=== PATIENT | female | born 1950 | race Caucasian/White ===

== ENCOUNTER → 2019-03-15 | Day surgery (SDC) | payer MEDICARE ==
[2019-03-14 11:14] LABS: BASOPHILS % 0.6 % (0.0-1.0); EOSINOPHILS # (AUTO) 0.1 (0.0-0.4); HEMATOCRIT 43.7 % (34.2-44.1); HEMOGLOBIN 14.3 g/dL (12.0-16.0); LYMPHOCYTES # (AUTO) 0.9 (1.0-3.2); LYMPHOCYTES % 19.5 % (18.0-39.1); MEAN CORPUSCULAR HEMOGLOBIN 33.2 pg (28-32); MEAN CORPUSCULAR HGB CONC 32.7 g/dL (31-35); MEAN CORPUSCULAR VOLUME 101.4 fL (81-99); MONOCYTES # (AUTO) 0.5 (0.2-0.8); MONOCYTES % 10.9 % (4.4-11.3); NEUTROPHILS # (AUTO) 3.2 (2.1-6.9); NEUTROPHILS % 67.8 % (38.7-80.0); PLATELET COUNT 236 x10e3/uL (140-360); RED BLOOD COUNT 4.31 x10e6/uL (3.6-5.1); RED CELL DISTRIBUTION WIDTH 13.7 % (11.7-14.4)
[~2019-03-15] MED LIST: BALANCED SALT SOLN (OPTH) 15 ML BTL IO ONE; BUPIVACAINE HC 0.75% PF 10ML VIAL INJ ONE; BUPIVACAINE HCL 0.25% 10ML MPF VIAL INJ ONE; CYCLOPENTOLATE HCL 1% OPTH SOLN 2ML BTL ONE; EPINEPHRINE HCL 1:1000 1ML 1 MG/ML AMP ONE; FENTANYL CITRATE/PF 100MCG/2 ML INJ ONE; LIDOCAINE 2%/ EPINEPHRINE 20ML MDV ONE; LIDOCAINE HCL 1% 2 ML AMP ONE; LIDOCAINE HCL-PF 4% 40 MG/1 ML 5ML AMP ONE; MIDAZOLAM HCL 2 MG/2 ML VIAL ONE; MOXIFLOXACIN HCL(OPTH) 3 ML BTL ONE; NEOMYCIN/POLYMYXIN/DEX (OPTH) 3.5 GM TUBE ONE; PAROXETINE HCL20 MG PO; PHENYLEPHRINE HCL 2 ML DROPS ONE; POVIDONE IODINE 5% (OPTH) 30 ML BTL ONE; TOBRAMYCIN/DEXAMETHASONE(OPTH) 3.5 GM TUBE ONE; TRELEGY ELLIPT1 EACH INH; TROPICAMIDE 1% OPTH SOLN 3ML ONE
[2019-03-15 08:25] VITALS: BP 128/80
--- OUTSIDE RECORDS SUMMARY | 2019-03-15 19:32 | XMS REPORT ---
[facility] Address Unknown Phone Unavailable Care Team Providers Care Director Paid Media Name Role Phone Unavailable Unavailable Payers Payer Name Policy Type Policy Number Effective Date Expiration Date Problems This patient has no known problems. Allergies, Adverse Reactions, Alerts Allergy Name Allergy Type Status Severity Reaction(s) Onset Date Inactive Date Treating Clinician Comments Sulfa (Sulfonamide Antibiotics) DA Active MO 2010-07-15 00:00:00 aspirin DA Active MO 2010-07-15 00:00:00 Medications This patient has no known medications. Results Test Description Test Time Test Comments Text Results Atomic Results Result Comments - XR CONT ENEMA W/WO MUNA 2018-10-18 12:14:00 FAX: Miguel Angel Alvarez MD [phone] [place]: St: [facility] FAX: Kg Greene [phone] Name: ABBEY CANTU JAKOB [facility] : 1950 Age/S: 68/F [address] [facility] Unit #: [id number] Loc: [place] [address] Phys: Miguel Angel Guillaume MD Acct: [id number] Dis Date: Status: REG CLSumeet PHONE #: [phone] Exam Date: 10/18/2018 1020 FAX #: [phone] Reason: Marie QURESHI.9 EXAMS: CPT CODE: [id number] XR CONT ENEMA W/WO KUB [id number] HISTORY: Anemia. COMPARISON: None available. Double contrast barium enema exam: Piercer Operator view of the abdomen demonstrating nonspecific bowel gas pattern. Retrograde barium was administered using gravity along with air the entire colon distended well. Free passage of contrast through the entire colon with reflux into the small bowel. No obstructing or constricting lesions. No mass. No obvious polyps are visible on this exam. IMPRESSION: The colon distended well without constricting or obstructing lesions. No polyps are visible on this examination. Fluoroscopy time utilized was 2.5 minutes. 47 images were obtained during the study. at 1214 Reported and signed by: Bubba Rees M.D. CC: Miguel Angel Guillaume MD; Zainab Blevins MD Technologist: RT ROHINI(R); STUDENT TECHNOLOGIST Trnscrd Date/Time/By: 10/18/2018 (8834) : By: [email or web address] Orig Print D/T: S: 10/18/2018 (3912) PAGE 1 Signed Report [facility] 2018-07-14 08:22:00 RUN DATE: 07/14/18 [place] - Lab PAGE 1 RUN TIME: 821 Specimen Inquiry RUN USER: INTERFACE PATIENT: ABBEY CANTU LOC: [place] U #: [id number] AGE/SX: 68/F ROOM: RE07/12/18REG DR: Miguel Angel Guillaume MD : 46 BED: DIS: STATUS: [facility] TLOC: SPEC #: [id number] RECD: 07/12/18 STATUS: YANDY [facility] #: [id number] JOHANA: 07/12/18- SUBM DR: Miguel Angel Guillaume MD ENTERED: 07/12/18 SP TYPE: STOMACH OTHR DR: ORDERED: GROSS PROCEDURES: GROSS (07/13/18- 143) TISSUES: 1. ANTRAL BIOPSY - H-PYLORI 2. SIGMOID - POLYP CLINICAL HISTORY COLLECTION DATE: COLON CANCER SCREENING, ANEMIA FINAL DIAGNOSIS Stomach, antrum, biopsy: CHRONIC ACTIVE GASTRITIS H. PYLORI ORGANISMS PRESENT MICROFOCAL INTESTINAL METAPLASIA NEGATIVE FOR DYSPLASIA OR MALIGNANCY Sigmoid colon polyp, polypectomy: VILLOUS ADENOMA NEGATIVE FOR HIGH GRADE DYSPLASIA OR MALIGNANCY FA/kim D [id number], [id number] MACROSCOPIC The first specimen is received in formalin, labeled with the patient's name, identified as "antrum bx", and consists of two cloud biopsy tissue measuring 0.2 and 0.4 cm, submitted as (1) for H E and Giemsa stain. The second specimen is received in formalin, labeled with the patient's name, identified as "sigmoid colon polyp", and consists of two portions of cloud-pink soft biopsy tissue measuring 0.3 and 0.7 cm. Base of larger specimen is inked in black and bisected. The specimen is entirely submitted as (2). CONTINUED ON NEXT PAGE RUN DATE: 07/14/18 [facility] PAGE 2 RUN TIME: 821 Specimen Inquiry RUN USER: INTERFACE SPEC #: [id number] PATIENT: ABBEY CANTU #[id number] (Continued) MACROSCOPIC (Continued) GROSS PERFORMED AT [facility] [address] [place] [address] [phone])[phone] MICROSCOPIC All of the stains, including any controls performed, stain appropriately. MICROSCOPIC PERFORMED AT [facility] [address] [place] [address] [phone])[phone] PERFORMING SITE Diagnosis performed at: [facility], [place] [address] [facility] [place] [address] Signed SIGNATURE ON FILE Elizabeth Watts MD 07/14/18 0822 END OF REPORT CBC W/AUTO DIFF 2018-06-30 20:48:00 WHITE BLOOD CELL (test code=WBC) 4.2 K/mm3 4.5-12.5 RED BLOOD CELL (test code=RBC) 4.90 mill/mm3 3.7-5.2 HEMOGLOBIN (test code=HGB) 13.0 gram/dL 11.5-15.5 HEMATOCRIT (test code=HCT) 43.8 % 36.0-46.0 MEAN CELL VOLUME (test code=MCV) 89.4 fL 80-98 MEAN CELL HGB (test code=MCH) 26.5 picogram 27.0-33.0 MEAN CELL HGB CONCETRATION (test code=MCHC) 29.7 gram/dL 33.0-36.0 RED CELL DISTRIBUTION WIDTH (test code=RDW) 28.0 % 11.6-16.2 RED CELL DISTRIBUTION WIDTH SD (test code=RDW-SD) 87.2 fL 37.0-51.0 PLATELET COUNT (test code=PLT) 266 K/mm3 150-450 MEAN PLATELET VOLUME (test code=MPV) 9.0 fL 6.7-11.0 NEUTROPHIL % (test code=NT%) 62.4 % 39.0-69.0 IMMATURE GRANULOCYTE % (test code=IG%) 0.2 % 0.0-5.0 LYMPHOCYTE % (test code=LY%) 25.7 % 25.0-55.0 MONOCYTE % (test code=MO%) 9.8 % 0.0-10.0 EOSINOPHIL % (test code=EO%) 1.4 % 0.0-5.0 BASOPHIL % (test code=BA%) 0.5 % 0.0-1.0 NEUTROPHIL # (test code=NT#) 2.60 K/mm3 1.8-7.7 IMMATURE GRANULOCYTE # (test code=IG#) 0.01 x10 3/uL 0-0.03 LYMPHOCYTE # (test code=LY#) 1.07 K/mm3 1.0-5.0 MONOCYTE # (test code=MO#) 0.41 K/mm3 0-0.8 EOSINOPHIL # (test code=EO#) 0.06 K/mm3 0.0-0.5 BASOPHIL # (test code=BA#) 0.02 K/mm3 0.0-0.2 MANUAL DIFF REQUIRED (test code=MDIFF) NO, ONLY SCAN NEEDED SCANNED SLIDE; SLIDE AGREES WITH AUTOMATED DIFFERENTIAL DIFFERENTIAL [id number] 20:48:00* Test Item Value Reference Range Comments STAIN ACCEPTABILITY (test code=STN ACCEPTABLE) STAIN ACCEPTABLE POIKILOCYTOSIS (test code=POIK) 1+ ANISOCYTOSIS (test code=ANISO) 2+ PLATELET ESTIMATE (test code=PLTEST) ADEQUATE PLATELET MORPHOLOGY (test code=PLTMORPH) NORMAL CBC W/AUTO [id number] 20:46:00* Test Item Value Reference Range Comments WHITE BLOOD CELL (test code=WBC) 4.2 K/mm3 4.5-12.5 RED BLOOD CELL (test code=RBC) 4.90 mill/mm3 3.7-5.2 HEMOGLOBIN (test code=HGB) 13.0 gram/dL 11.5-15.5 HEMATOCRIT (test code=HCT) 43.8 % 36.0-46.0 MEAN CELL VOLUME (test code=MCV) 89.4 fL 80-98 MEAN CELL HGB (test code=MCH) 26.5 picogram 27.0-33.0 MEAN CELL HGB CONCETRATION (test code=MCHC) 29.7 gram/dL 33.0-36.0 RED CELL DISTRIBUTION WIDTH (test code=RDW) 28.0 % 11.6-16.2 RED CELL DISTRIBUTION WIDTH SD (test code=RDW-SD) 87.2 fL 37.0-51.0 PLATELET COUNT (test code=PLT) 266 K/mm3 150-450 MEAN PLATELET VOLUME (test code=MPV) 9.0 fL 6.7-11.0 NEUTROPHIL % (test code=NT%) 62.4 % 39.0-69.0 IMMATURE GRANULOCYTE % (test code=IG%) 0.2 % 0.0-5.0 LYMPHOCYTE % (test code=LY%) 25.7 % 25.0-55.0 MONOCYTE % (test code=MO%) 9.8 % 0.0-10.0 EOSINOPHIL % (test code=EO%) 1.4 % 0.0-5.0 BASOPHIL % (test code=BA%) 0.5 % 0.0-1.0 NEUTROPHIL # (test code=NT#) 2.60 K/mm3 1.8-7.7 IMMATURE GRANULOCYTE # (test code=IG#) 0.01 x10 3/uL 0-0.03 LYMPHOCYTE # (test code=LY#) 1.07 K/mm3 1.0-5.0 MONOCYTE # (test code=MO#) 0.41 K/mm3 0-0.8 EOSINOPHIL # (test code=EO#) 0.06 K/mm3 0.0-0.5 BASOPHIL # (test code=BA#) 0.02 K/mm3 0.0-0.2 MANUAL DIFF REQUIRED (test code=MDIFF) NO, ONLY SCAN NEEDED SCANNED SLIDE; SLIDE AGREES WITH AUTOMATED DIFFERENTIAL DIFFERENTIAL [id number] 20:46:00* Test Item Value Reference Range Comments STAIN ACCEPTABILITY (test code=STN ACCEPTABLE) MORPHOLOGY COMMENT (test code=MOC) PLATELET ESTIMATE (test code=PLTEST) PLATELET MORPHOLOGY (test code=PLTMORPH) CBC W/AUTO [id number] 18:09:00* Test Item Value Reference Range Comments WHITE BLOOD CELL (test code=WBC) 4.2 K/mm3 4.5-12.5 RED BLOOD CELL (test code=RBC) 4.90 mill/mm3 3.7-5.2 HEMOGLOBIN (test code=HGB) 13.0 gram/dL 11.5-15.5 HEMATOCRIT (test code=HCT) 43.8 % 36.0-46.0 MEAN CELL VOLUME (test code=MCV) 89.4 fL 80-98 MEAN CELL HGB (test code=MCH) 26.5 picogram 27.0-33.0 MEAN CELL HGB CONCETRATION (test code=MCHC) 29.7 gram/dL 33.0-36.0 RED CELL DISTRIBUTION WIDTH (test code=RDW) 28.0 % 11.6-16.2 RED CELL DISTRIBUTION WIDTH SD (test code=RDW-SD) 87.2 fL 37.0-51.0 PLATELET COUNT (test code=PLT) 266 K/mm3 150-450 MEAN PLATELET VOLUME (test code=MPV) 9.0 fL 6.7-11.0 NEUTROPHIL % (test code=NT%) 62.4 % 39.0-69.0 IMMATURE GRANULOCYTE % (test code=IG%) 0.2 % 0.0-5.0 LYMPHOCYTE % (test code=LY%) 25.7 % 25.0-55.0 MONOCYTE % (test code=MO%) 9.8 % 0.0-10.0 EOSINOPHIL % (test code=EO%) 1.4 % 0.0-5.0 BASOPHIL % (test code=BA%) 0.5 % 0.0-1.0 NEUTROPHIL # (test code=NT#) 2.60 K/mm3 1.8-7.7 IMMATURE GRANULOCYTE # (test code=IG#) 0.01 x10 3/uL 0-0.03 LYMPHOCYTE # (test code=LY#) 1.07 K/mm3 1.0-5.0 MONOCYTE # (test code=MO#) 0.41 K/mm3 0-0.8 EOSINOPHIL # (test code=EO#) 0.06 K/mm3 0.0-0.5 BASOPHIL # (test code=BA#) 0.02 K/mm3 0.0-0.2 MANUAL DIFF REQUIRED (test code=MDIFF) NO, ONLY SCAN NEEDED DIFFERENTIAL [id number] 18:09:00* Test Item Value Reference Range Comments STAIN ACCEPTABILITY (test code=STN ACCEPTABLE) CABOT RINGS (test code=CAB) MORPHOLOGY COMMENT (test code=MOC) PLATELET ESTIMATE (test code=PLTEST) PLATELET MORPHOLOGY (test code=PLTMORPH) CBC W/AUTO [id number] 18:09:00* Test Item Value Reference Range Comments WHITE BLOOD CELL (test code=WBC) 4.2 K/mm3 4.5-12.5 RED BLOOD CELL (test code=RBC) 4.90 mill/mm3 3.7-5.2 HEMOGLOBIN (test code=HGB) 13.0 gram/dL 11.5-15.5 HEMATOCRIT (test code=HCT) 43.8 % 36.0-46.0 MEAN CELL VOLUME (test code=MCV) 89.4 fL 80-98 MEAN CELL HGB (test code=MCH) 26.5 picogram 27.0-33.0 MEAN CELL HGB CONCETRATION (test code=MCHC) 29.7 gram/dL 33.0-36.0 RED CELL DISTRIBUTION WIDTH (test code=RDW) 28.0 % 11.6-16.2 RED CELL DISTRIBUTION WIDTH SD (test code=RDW-SD) 87.2 fL 37.0-51.0 PLATELET COUNT (test code=PLT) 266 K/mm3 150-450 MEAN PLATELET VOLUME (test code=MPV) 9.0 fL 6.7-11.0 NEUTROPHIL % (test code=NT%) 62.4 % 39.0-69.0 IMMATURE GRANULOCYTE % (test code=IG%) 0.2 % 0.0-5.0 LYMPHOCYTE % (test code=LY%) 25.7 % 25.0-55.0 MONOCYTE % (test code=MO%) 9.8 % 0.0-10.0 EOSINOPHIL % (test code=EO%) 1.4 % 0.0-5.0 BASOPHIL % (test code=BA%) 0.5 % 0.0-1.0 NEUTROPHIL # (test code=NT#) 2.60 K/mm3 1.8-7.7 IMMATURE GRANULOCYTE # (test code=IG#) 0.01 x10 3/uL 0-0.03 LYMPHOCYTE # (test code=LY#) 1.07 K/mm3 1.0-5.0 MONOCYTE # (test code=MO#) 0.41 K/mm3 0-0.8 EOSINOPHIL # (test code=EO#) 0.06 K/mm3 0.0-0.5 BASOPHIL # (test code=BA#) 0.02 K/mm3 0.0-0.2 MANUAL DIFF REQUIRED (test code=MDIFF) NO, ONLY SCAN NEEDED DIFFERENTIAL [id number] 18:09:00* Test Item Value Reference Range Comments STAIN ACCEPTABILITY (test code=STN ACCEPTABLE) CABOT RINGS (test code=CAB) MORPHOLOGY COMMENT (test code=MOC) PLATELET ESTIMATE (test code=PLTEST) PLATELET MORPHOLOGY (test code=PLTMORPH) CBC W/AUTO [id number] 18:09:00* Test Item Value Reference Range Comments WHITE BLOOD CELL (test code=WBC) 4.2 K/mm3 4.5-12.5 RED BLOOD CELL (test code=RBC) 4.90 mill/mm3 3.7-5.2 HEMOGLOBIN (test code=HGB) 13.0 gram/dL 11.5-15.5 HEMATOCRIT (test code=HCT) 43.8 % 36.0-46.0 MEAN CELL VOLUME (test code=MCV) 89.4 fL 80-98 MEAN CELL HGB (test code=MCH) 26.5 picogram 27.0-33.0 MEAN CELL HGB CONCETRATION (test code=MCHC) 29.7 gram/dL 33.0-36.0 RED CELL DISTRIBUTION WIDTH (test code=RDW) 28.0 % 11.6-16.2 RED CELL DISTRIBUTION WIDTH SD (test code=RDW-SD) 87.2 fL 37.0-51.0 PLATELET COUNT (test code=PLT) 266 K/mm3 150-450 MEAN PLATELET VOLUME (test code=MPV) 9.0 fL 6.7-11.0 NEUTROPHIL % (test code=NT%) 62.4 % 39.0-69.0 IMMATURE GRANULOCYTE % (test code=IG%) 0.2 % 0.0-5.0 LYMPHOCYTE % (test code=LY%) 25.7 % 25.0-55.0 MONOCYTE % (test code=MO%) 9.8 % 0.0-10.0 EOSINOPHIL % (test code=EO%) 1.4 % 0.0-5.0 BASOPHIL % (test code=BA%) 0.5 % 0.0-1.0 NEUTROPHIL # (test code=NT#) 2.60 K/mm3 1.8-7.7 IMMATURE GRANULOCYTE # (test code=IG#) 0.01 x10 3/uL 0-0.03 LYMPHOCYTE # (test code=LY#) 1.07 K/mm3 1.0-5.0 MONOCYTE # (test code=MO#) 0.41 K/mm3 0-0.8 EOSINOPHIL # (test code=EO#) 0.06 K/mm3 0.0-0.5 BASOPHIL # (test code=BA#) 0.02 K/mm3 0.0-0.2 MANUAL DIFF REQUIRED (test code=MDIFF) NO, ONLY SCAN NEEDED DIFFERENTIAL [id number] 18:09:00* Test Item Value Reference Range Comments STAIN ACCEPTABILITY (test code=STN ACCEPTABLE) MORPHOLOGY COMMENT (test code=MOC) PLATELET ESTIMATE (test code=PLTEST) PLATELET MORPHOLOGY (test code=PLTMORPH) CBC W/AUTO [id number] 18:09:00* Test Item Value Reference Range Comments WHITE BLOOD CELL (test code=WBC) 4.2 K/mm3 4.5-12.5 RED BLOOD CELL (test code=RBC) 4.90 mill/mm3 3.7-5.2 HEMOGLOBIN (test code=HGB) 13.0 gram/dL 11.5-15.5 HEMATOCRIT (test code=HCT) 43.8 % 36.0-46.0 MEAN CELL VOLUME (test code=MCV) 89.4 fL 80-98 MEAN CELL HGB (test code=MCH) 26.5 picogram 27.0-33.0 MEAN CELL HGB CONCETRATION (test code=MCHC) 29.7 gram/dL 33.0-36.0 RED CELL DISTRIBUTION WIDTH (test code=RDW) 28.0 % 11.6-16.2 RED CELL DISTRIBUTION WIDTH SD (test code=RDW-SD) 87.2 fL 37.0-51.0 PLATELET COUNT (test code=PLT) 266 K/mm3 150-450 MEAN PLATELET VOLUME (test code=MPV) 9.0 fL 6.7-11.0 NEUTROPHIL % (test code=NT%) 62.4 % 39.0-69.0 IMMATURE GRANULOCYTE % (test code=IG%) 0.2 % 0.0-5.0 LYMPHOCYTE % (test code=LY%) 25.7 % 25.0-55.0 MONOCYTE % (test code=MO%) 9.8 % 0.0-10.0 EOSINOPHIL % (test code=EO%) 1.4 % 0.0-5.0 BASOPHIL % (test code=BA%) 0.5 % 0.0-1.0 NEUTROPHIL # (test code=NT#) 2.60 K/mm3 1.8-7.7 IMMATURE GRANULOCYTE # (test code=IG#) 0.01 x10 3/uL 0-0.03 LYMPHOCYTE # (test code=LY#) 1.07 K/mm3 1.0-5.0 MONOCYTE # (test code=MO#) 0.41 K/mm3 0-0.8 EOSINOPHIL # (test code=EO#) 0.06 K/mm3 0.0-0.5 BASOPHIL # (test code=BA#) 0.02 K/mm3 0.0-0.2 MANUAL DIFF REQUIRED (test code=MDIFF) NO, ONLY SCAN NEEDED DIFFERENTIAL [id number] 18:09:00* Test Item Value Reference Range Comments STAIN ACCEPTABILITY (test code=STN ACCEPTABLE) CABOT RINGS (test code=CAB) MORPHOLOGY COMMENT (test code=MOC) PLATELET ESTIMATE (test code=PLTEST) PLATELET MORPHOLOGY (test code=PLTMORPH) BASIC METABOLIC [id number] 17:25:00* Test Item Value Reference Range Comments SODIUM (test code=NA) 143 mmol/L 128-145 POTASSIUM (test code=K) 4.2 mmol/L 3.5-5.1 CHLORIDE (test code=CL) 103.0 mmol/L 98-107 CARBON DIOXIDE (test code=CO2) 28.4 mmol/L 22-29 ANION GAP (test code=GAP) 16 mmol/L 10-20 GLUCOSE (test code=GLU) 61 mg/dL 70-110 BLOOD UREA NITROGEN (test code=BUN) 13 mg/dL 7-22 GLOMERULAR FILTRATION RATE (test code=GFR) > 60 mL/min >=60 Estimated GFR by using Modified MDRD formula.Chronic kidney disease is defined as either kidney damageor GFR <60 mL/min/1.73 m2 for >3 months. CREATININE (test code=CREAT) 0.62 mg/dL 0.55-1.3 BUN/CREATININE RATIO (test code=BUN/CREA) 21.0 10-20 CALCIUM (test code=CA) 9.7 mg/dL 8.0-10.5
== END | disposition home or self-care (01) ==
LOC: OR 05:38
PROVIDERS: ATTEND Ophthalmology
DX: H25.11 Age-related nuclear cataract, right eye (principal); J44.9 Chronic obstructive pulmonary disease, unspecified; F17.210 Nicotine dependence, cigarettes, uncomplicated; Z88.6 Allergy status to analgesic agent; Z88.2 Allergy status to sulfonamides; Z01.810 Encounter for preprocedural cardiovascular examination; Z01.812 Encounter for preprocedural laboratory examination
CPT/HCPCS: 36415; 66984; 85025; 93005; J0171; J2001; J2250; J3010; V2632

== ENCOUNTER → 2019-07-21 | Day surgery (SDC) | payer MEDICARE, OTHER ==
[2019-07-18 13:07] LABS: BASOPHILS % 0.6 % (0.0-1.0); EOSINOPHILS % 0.6 % (0.0-6.0); HEMATOCRIT 41.4 % (34.2-44.1); HEMOGLOBIN 13.4 g/dL (12.0-16.0); LYMPHOCYTES # (AUTO) 1.3 (1.0-3.2); LYMPHOCYTES % 25.7 % (18.0-39.1); MEAN CORPUSCULAR HEMOGLOBIN 32.4 pg (28-32); MEAN CORPUSCULAR HGB CONC 32.4 g/dL (31-35); MONOCYTES # (AUTO) 0.6 (0.2-0.8); MONOCYTES % 10.9 % (4.4-11.3); NEUTROPHILS # (AUTO) 3.2 (2.1-6.9); PLATELET COUNT 228 x10e3/uL (140-360); RED BLOOD COUNT 4.14 x10e6/uL (3.6-5.1); RED CELL DISTRIBUTION WIDTH 13.9 % (11.7-14.4)
[~2019-07-21] MED LIST changes: -BUPIVACAINE HC 0.75% PF 10ML VIAL INJ ONE; -BUPIVACAINE HCL 0.25% 10ML MPF VIAL INJ ONE; -LIDOCAINE 2%/ EPINEPHRINE 20ML MDV ONE; -LIDOCAINE HCL 1% 2 ML AMP ONE; +LIDOCAINE HCL 2% LOCAL INJ 5 ML SDV VIAL INJ ONE; -NEOMYCIN/POLYMYXIN/DEX (OPTH) 3.5 GM TUBE ONE; -TOBRAMYCIN/DEXAMETHASONE(OPTH) 3.5 GM TUBE ONE
[2019-07-21 08:10] VITALS: BP 156/82
== END | disposition home or self-care (01) ==
LOC: OR 05:44
PROVIDERS: ATTEND Ophthalmology
DX: H25.12 Age-related nuclear cataract, left eye (principal); J44.9 Chronic obstructive pulmonary disease, unspecified; I45.10 Unspecified right bundle-branch block; F17.210 Nicotine dependence, cigarettes, uncomplicated; Z01.810 Encounter for preprocedural cardiovascular examination; Z01.812 Encounter for preprocedural laboratory examination; Z11.59 Encounter for screening for other viral diseases; Z99.81 Dependence on supplemental oxygen; Z88.6 Allergy status to analgesic agent; Z88.2 Allergy status to sulfonamides
CPT/HCPCS: 36415; 66984; 85025; 87635; 93005; J0171; J2001; V2632; J2250; J3010

== ENCOUNTER → 2024-08-08 | Outpatient (REF) | payer MEDICARE ==
[~2024-08-08] MED LIST changes: -BALANCED SALT SOLN (OPTH) 15 ML BTL IO ONE; -CYCLOPENTOLATE HCL 1% OPTH SOLN 2ML BTL ONE; -EPINEPHRINE HCL 1:1000 1ML 1 MG/ML AMP ONE; -FENTANYL CITRATE/PF 100MCG/2 ML INJ ONE; -LIDOCAINE HCL 2% LOCAL INJ 5 ML SDV VIAL INJ ONE; -LIDOCAINE HCL-PF 4% 40 MG/1 ML 5ML AMP ONE; -MIDAZOLAM HCL 2 MG/2 ML VIAL ONE; -MOXIFLOXACIN HCL(OPTH) 3 ML BTL ONE; -PHENYLEPHRINE HCL 2 ML DROPS ONE; -POVIDONE IODINE 5% (OPTH) 30 ML BTL ONE; -TROPICAMIDE 1% OPTH SOLN 3ML ONE
[2024-08-08 11:21] LABS: ABG PCO2 46 mmHg (35-45); ABG PH 7.51 (7.35-7.45); ABG PO2 89 mmHg (80-105)
[2024-08-08 11:22] LABS: ABG HCO3 36 mmol/L (22-26); ABG TCO2 38
[2024-08-08 11:29] LABS: ABG HCO3 36 mmol/L (22-26); ABG PCO2 46 mmHg (35-45); ABG PH 7.51 (7.35-7.45); ABG PO2 89 mmHg (80-105); ABG TCO2 38
== END ==
LOC: RESP 10:43
PROVIDERS: ATTEND Internal Medicine
DX: J44.9 Chronic obstructive pulmonary disease, unspecified (principal); J96.11 Chronic respiratory failure with hypoxia
CPT/HCPCS: 36415; 82805